=== PATIENT | female | born 1960 | race Two or more races ===

== ENCOUNTER 2024-07-25 11:48 | Inpatient (IN) | payer BC, MEDICAID ==
[~2024-07-25] VITALS: Ht 172.7 cm; Wt 69.1 kg
--- NOTE | 2024-07-25 12:45 | ED.PDOC ---
GI ASSESSMENT HPI Comments 64y F who presents to the ED for chief complaint of nausea and vomiting. Pt states she has been having nausea and vomiting for the past 4 days. Pt states she has hernia on the R and states and states she is to have surgery soon and states her symptoms started when she started to feel his r pelvic pain. Pt states the pain is constant, rating the pain 9/10, with no associated exacerbating or relieving factors. Pt otherwise denies vomiting, diarrhea, fever,cough, chills, dysuria, or hematuria. Pt otherwise denies any other symptoms at this time. 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 Family History Family History: Unknown Social History Smoker: Cigarettes Alcohol: Denies ETOH Use Drugs: Denies Drug Use Lives In: Home Constitutional: denies: chills, diaphoresis, fatigue, fever, malaise, sweats, weakness, others EENTM: denies: blurred vision, double vision, ear bleeding, ear discharge, ear drainage, ear pain, ear ringing, eye pain, eye redness, hearing loss, mouth pain, mouth swelling, nasal discharge, nose bleeding, nose congestion, nose pain, photophobia, tearing, throat pain, throat swelling, voice changes, others Respiratory: denies: cough, hemoptysis, orthopnea, SOB at rest, shortness of breath, SOB with excertion, stridor, wheezing, others Cardiovascular: denies: chest pain, dizzy spells, diaphoresis, Dyspnea on exertion, edema, irregular heart beat, left arm pain, lightheadedness, palpitations, PND, syncope, others Gastrointestinal: reports: nausea, vomiting, others (pelvic pain); denies: abdomen distended, abdominal pain, blood streaked bowels, constipated, diarrhea, dysphagia, difficulty swallowing, hematemesis, melena, poor appetite, poor fluid intake, rectal bleeding, rectal pain Genitourinary: denies: abnormal vagina bleeding, burning, dyspareunia, dysuria, flank pain, frequency, hematuria, incontinence, pain, , vagina discharge, urgency, others Neurological: denies: dizziness, fainting, headache, left sided numbness, left sided weakness, numbness, paresthesia, pre-existing deficit, right sided numbness, right sided weakness, seizure, speech problems, tingling, tremors, wea kness, others Musculoskeletal: denies: back pain, gout, joint pain, joint swelling, muscle pain, muscle stiffness, neck pain, others Integumetry: denies: bruises, change in color, change in hair/nails, dryness, l aceration, lesions, lumps, rash, wounds, others Allergic/Immunocompromised: denies: Difficulty Healing, Frequent Infections, Hives, Itching, others Hematologic/Lymphatic: denies: anemia, blood clots, easy bleeding, easy bruising, swollen glands, others Endocrine: denies: excessive hunger, excessive sweating, excessive thirst, excessive urination, flushing, intolerance to cold, intolerance to heat, unexplained weight gain, unexplained weight loss, others Psychiatric: denies: anxiety, bipolar disorder, depression, hopeless, panic disorder, schizophrenia, sleepless, suicidal, others All Other Systems: Reviewed and Negative Physical Exam General Appearance: Moderate Distress HEENT: Normal ENT Inspection, Pharynx Normal, TMs Normal Neck: Full Range of Motion, Non-Tender, Normal, Normal Inspection Respiratory: Chest Non-Tender, Lungs Clear, No Accessory Muscle Use, No Respiratory Distress, Normal Breath Sounds Cardiovascular: No Edema, No JVD, No Murmur, No Gallop, Normal Peripheral Pulses, Regular Rate/Rhythm Breast Exam: Deferred Gastrointestinal: Diffuse Genitalia: Deferred Pelvic: Deferred Rectal: Deferred Extremities: No calf tenderness, Normal capillary refill, Normal inspection, Normal range of motion, Non-tender, No pedal edema Musculoskeletal : Apperance: Normal Neurologic: Alert, 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 Was a procedure done?: No GI differential Dx Differential Diagnosis: Constipation, Diverticular disease, Esophagitis, Gastritis/PUD, Gastroenteritis, Hernia, UTI, Dehydration, Electrolyte Imbalance, Food Poisoning, Bacterial, Viral, Kidney Stone X-Ray, Labs, Meds, VS Vital Signs Date Time Temp Pulse Resp B/P (MAP) Pulse Ox O2 Delivery O2 Flow Rate FiO2 07/25/24 14:40 98.0 76 16 148/75 (99) 93 98.0 07/25/24 12:04 97.6 87 18 112/65 (81) 96 Lab Test 07/25/24 13:18 Range/Units White Blood Count 5.7 4.4-10.8 10^3/uL Red Blood Count 4.82 4.0-5.20 10^6/uL Hemoglobin 15.2 12.2-16.2 g/dL Hematocrit 43.8 36.0-46.0 % Mean Corpuscular Volume 90.9 80.0-100.0 fL Mean Corpuscular Hemoglobin 31.6 28.0-32.0 pg Mean Corpuscular Hemoglobin Concent 34.7 32.0-36.0 g/dL Red Cell Distribution Width 13.2 11.8-14.3 % Platelet Count 326 140-450 10^3/uL Mean Platelet Volume 7.6 6.9-10.8 fL Neutrophils (%) (Auto) 55.7 37.0-80.0 % Lymphocytes (%) (Auto) 29.1 10.0-50.0 % Monocytes (%) (Auto) 13.1 H 0.0-12.0 % Eosinophils (%) (Auto) 1.4 0.0-7.0 % Basophils (%) (Auto) 0.7 0.0-2.0 % Neutrophils # (Auto) 3.2 1.6-8.6 10 ^3/uL Lymphocytes # (Auto) 1.7 0.4-5.4 10 ^3/uL Monocytes # (Auto) 0.8 0-1.3 10 ^3/uL Eosinophils # (Auto) 0.1 0-0.8 10 ^3/uL Basophils # (Auto) 0 0-0.2 10 ^3/uL Nucleated Red Blood Cells 0.0 % Sodium Level 132 L 136-145 mmol/L Potassium Level 4.1 3.5-5.1 mmol/L Chloride Level 100 98-107 mmol/L Carbon Dioxide Level 22 20-31 mmol/L Anion Gap 10 5-15 Blood Urea Nitrogen 15 9-23 mg/dL Creatinine 0.82 0.550-1.02 mg/dL Glomerular Filtration Rate Calc 81 >90 mL/min BUN/Creatinine Ratio 18.3 10.0-20.0 Serum Glucose 80 74-106 mg/dL Calcium Level 9.4 8.7-10.4 mg/dL Exam: CT CT AB PEL WO CON-NO ORAL OR IV IMPRESSION: 1. Small-bowel obstruction with transition point at the level of a large right inguinal hernia which contains an inflamed loop of small bowel and ascites. 2. Trace abdominopelvic ascites. Patient alert. Complaining of abdominal pain. History of hernia. Unable to walk without any pain. Vitals stable. Answering all questions. Establish intravenous access. Was given fluids. Was given morphine. Was given Zofran. History of hernia waiting for surgery. Dr. Richey is the one that is supposed to do the surgery. Reviewed her history. Explained to the patient. Continue cardiac monitoring. CT scan of the abdomen reviewed does show small bowel obstruction with hernia. Time of 1ST Reevaluation: 13:15 Reevaluation 1ST: Unchanged Patient Education/Counseling: Diagnosis, Treatment Family Education/Counseling: No Family Present Departure 1 Departure Time of Disposition: 13:26 Impression: Primary Impression: Acute abdominal pain Additional Impressions: Small bowel obstruction Hernia Disposition: ADMITTED INPATIENT Admit to: Med Surg Condition: Guarded Critical Care Note Critical Care Time?: No Stability Stability form required: No Heart Score Heart Score: Heart Score Response (Comments) Value History N/A 0 EKG N/A 0 Age N/A 0 Risk Factors N/A 0 Troponin N/A 0 Total 0 I personally scribed for ORAL PRINCE MD (SANDRA) on 07/25/24 at 12:45. Electronically submitted by Daryl Oneill ([email or web address]). I personally scribed for ORAL PRINCE MD (SANDRA) on 07/25/24 at 20:58. Electronically submitted by Daryl Oneill ([employer]). ORAL PRINCE MD Jul 25, 2024 12:45
[2024-07-25 13:49] LABS: Basophils # (auto) 0 10 ^3/uL (0-0.2); Basophils % (auto) 0.7 % (0.0-2.0); Eosinophils # (auto) 0.1 10 ^3/uL (0-0.8); Eosinophils % (auto) 1.4 % (0.0-7.0); Hematocrit 43.8 % (36.0-46.0); Hemoglobin 15.2 g/dL (12.2-16.2); Lymphocytes # (auto) 1.7 10 ^3/uL (0.4-5.4); Lymphocytes % (auto) 29.1 % (10.0-50.0); Mean Corpuscular Hemoglobin 31.6 pg (28.0-32.0); Mean Corpuscular Hgb Conc. 34.7 g/dL (32.0-36.0); Mean Corpuscular Volume 90.9 fL (80.0-100.0); Monocytes # (auto) 0.8 10 ^3/uL (0-1.3); Monocytes % (auto) 13.1 % (0.0-12.0); Neutrophils # (auto) 3.2 10 ^3/uL (1.6-8.6); Neutrophils % (auto) 55.7 % (37.0-80.0); Platelet Count (auto) 326 10^3/uL (140-450); Red Blood Cells 4.82 10^6/uL (4.0-5.20); Red Cell Distribution Width 13.2 % (11.8-14.3); White Blood Cell 5.7 10^3/uL (4.4-10.8)
[2024-07-25 13:57] LABS: Chloride 100 mmol/L (98-107); Potassium 4.1 mmol/L (3.5-5.1)
[2024-07-25 13:58] LABS: Anion Gap 10 (5-15); Carbon Dioxide 22 mmol/L (20-31)
[2024-07-25 13:59] LABS: Calcium 9.4 mg/dL (8.7-10.4)
[2024-07-25 14:03] LABS: BUN/Creatinine Ratio 18.3 (10.0-20.0); Blood Urea Nitrogen 15 mg/dL (9-23); Glucose 80 mg/dL (74-106)
[2024-07-25 14:13] LABS: Sodium 132 mmol/L (136-145)
--- NOTE | 2024-07-25 20:51 | DVH ---
Exam: CT CT AB PEL WO CON-NO ORAL OR IV History: hernia Comparison Study: None Technique: Multidetector spiral CT of the abdomen was performed from lung bases to pubic symphysis. Imaging was performed without IV contrast. Axial, coronal and sagittal multiplanar reformats were ob tained from the axial data set by the technologist. Radiation Dose : 1. Abdomen/Pelvis: CTDIvol 7.3 mGy, DLP 402 mGy*cm. Findings: Evaluation of solid organs is limited due to lack of intravenous contrast use. Lung Bases: No acute or significant lung base finding. Normal heart size. No pleural or pericardial effusion. Liver: The liver is normal in size. No focal lesions. Multiple hepatic cysts are seen pick Gallbladder and Biliary Tree: Unremarkable Spleen: Unremarkable Pancreas: The pancreas is grossly normal in appearance. Adrenal Glands: Unremarkable Kidneys: Kidneys are grossly normal without calculi or hydronephrosis. Bladder: Grossly unremarkable for degree of distention. Bowel: Multiple abnormally dilated loops of small bowel are seen with focal transition point at the l evel of a large right inguinal hernia which contains a loop of inflamed small bowel with adjacent asc ites. Ascites: Trace abdominopelvic ascites. Ascites is also seen in a right inguinal hernia. Lymphadenopathy: No mesenteric, retroperitoneal or periportal lymphadenopathy. Abdominal Wall and Mesentery: Large right inguinal hernia containing noninflamed loop of small bowel and ascites.. Vasculature: The visualized abdominal aorta is normal in size and caliber. Evaluation of abdominal a nd pelvic vessels is limited due to lack of intravenous contrast. Pelvic Organs: Unremarkable Musculoskeletal: No aggressive focal bony lesions, acute fractures or dislocation. IMPRESSION: 1. Small-bowel obstruction with transition point at the level of a large right inguinal hernia which contains an inflamed loop of small bowel and ascites. 2. Trace abdominopelvic ascites. Radiation optimization: All CT scans at this facility use at least one of these dose optimization avinash hniques: automated exposure control mA and/or kV adjustment per patient size (includes targeted exam s where dose is matched to clinical indication) or iterative reconstruction.
[2024-07-25] MEDS: MORPHINE SULFATE 4 MG/ML SYR/VIAL IV ONE (21:00)
[2024-07-25] MEDS: ONDANSETRON HCL 4 MG/2 ML VIAL IV ONE (21:00)
[2024-07-25] MEDS ORDERED: ONDANSETRON HCL 4 MG/2 ML VIAL IV PRN (21:30)
[2024-07-25] MEDS ORDERED: MORPHINE SULFATE INJ 2 MG/ml SYRG IV PRN (21:30)
[2024-07-25] MEDS: PIPERACILLIN-TAZOB 3.375GM 100 ML IV SCH (22:00)
[2024-07-25 22:44] LABS: INR 1.04 (0.9-1.15)
[2024-07-26] VITALS (9 sets, daily range): BP systolic 111–150; BP diastolic 16–64; PULSE 57–79; RESP 15–20; TEMP 97.4–97.9; O2SAT 92–96
--- NOTE | 2024-07-26 00:35 | DVHHP2 ---
Admitting Diagnosis: Small Bowel Obstruction, Inguinal hernia, abdominal pain History of Present Illness History Source: Patient Exam Limitations: No limitations HPI Mrs. Arely Woods is a 64 yo female who presents with a chief complaint of nausea and vomiting. Patient states she has been having nausea and vomiting for the past 4 days. Patient states she has hernia on the right and states and states she is to have surgery soon and states her symptoms started when she started to feel her right pelvic pain. Patient states the pain is constant, rating the pain 9/10, with no associated exacerbating or relieving factors. Patient CT abd/pelvis resulted 1. Small-bowel obstruction with transition point at the level of a large right inguinal hernia which contains an inflamed loop of small bowel and ascites. 2. Trace abdominopelvic ascites. ED Provider Dr. 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 Home Meds No Active Prescriptions or Reported Meds Past Medical History Cardiac: No pertinent Hx Pulmonary: No pertinent Hx Central Nervous System: No pertinent Hx GI: No pertinent Hx Hemotology/Oncology: No pertinent Hx Hepatobiliary: No pertinent Hx Psychiatric: No pertinent Hx Musculoskeletal: No pertinent Hx Rheumotologic: No pertinent Hx Infectious Disease: No peritnent Hx ENT: No pertinent Hx Renal/: No pertinent Hx Endocrine: No pertinent Hx Dermatology: No pertinent Hx Others right inguinal hernia Smoker: No Hx (Negative) Alocohol: None Drugs: None Domestic Violence: Neg Review of Systems Constitutional: No symptom reported Ears, Nose, & Throat: No symptom reported Eyes: No symptom reported Pulmonary/Respiratory: No symptom reported Cardiovascular: No symptom reported Gastrointestinal: Nausea, Abdominal Pain Genitourinary: No symptom reported Musculoskeletal: No symptom reported Skin: No symptom reported Psychiatric: No symptom reported Endocrine: No symptom reported Hemotologic/Lymphatic: No symptom reported H&P Exam Vital Signs Vital Signs Date Time Temp Pulse Resp B/P (MAP) Pulse Ox O2 Delivery O2 Flow Rate FiO2 07/25/24 23:40 98.4 72 18 134/69 (90) 95 98.4 07/25/24 21:18 Room Air General Appeara: Well developed, Well nourished Head Exam: Normal inspection Neck Exam: Normal inspection, Non-tender, Normal alignment Eye Exam: bilateral eye Normal inspection, bilateral eye PERRL, bilateral eye EOMI Ear Exam: bilateral ear Auricle normal, bilateral ear Canal normal Nasal Exam: Normal inspection Mouth: Normal Inspection Pulmonary/Respiratory: Normal inspection, Normal breath sounds, Chest non- tender, Lungs clear Cardiovascular/Chest: Normal inspection, Regular rate, Normal Rhythm Peripheral Pulses: 2+ femoral (L), 2+ dorsalis pedis (R) Abdominal Exam: Soft, Other (hypoactive bowel sounds, tenderness ) Abdominal Pain Onset Location: Generalized abdomen Rectal Exam: Deferred Back Exam: Normal inspection Pelvic 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: Normal hearing, Normal speech, PERRL Neuro/Mental St: Alert, Oriented Appearance: Appropriate appearance, Appropriate insight Eye contact/ Speech: Cooperative, Good eye contact, Normal speech Thoughts/Psych: Normal thought pattern Skin Exam: Normal inspection, Normal color, Warm/dry Labs/Xrays Labs Test 07/25/24 22:11 07/25/24 20:51 07/25/24 13:18 Range/Units Prothrombin Time 11.0 9.3-11.8 sec Prothrombin Time INR 1.04 0.9-1.15 Lactic Acid Level 0.9 0.4-2.0 mmol/L White Blood Count 5.7 4.4-10.8 10^3/uL Red Blood Count 4.82 4.0-5.20 10^6/uL Hemoglobin 15.2 12.2-16.2 g/dL Hematocrit 43.8 36.0-46.0 % Mean Corpuscular Volume 90.9 80.0-100.0 fL Mean Corpuscular Hemoglobin 31.6 28.0-32.0 pg Mean Corpuscular Hemoglobin Concent 34.7 32.0-36.0 g/dL Red Cell Distribution Width 13.2 11.8-14.3 % Platelet Count 326 140-450 10^3/uL Mean Platelet Volume 7.6 6.9-10.8 fL Neutrophils (%) (Auto) 55.7 37.0-80.0 % Lymphocytes (%) (Auto) 29.1 10.0-50.0 % Monocytes (%) (Auto) 13.1 H 0.0-12.0 % Eosinophils (%) (Auto) 1.4 0.0-7.0 % Basophils (%) (Auto) 0.7 0.0-2.0 % Neutrophils # (Auto) 3.2 1.6-8.6 10 ^3/uL Lymphocytes # (Auto) 1.7 0.4-5.4 10 ^3/uL Monocytes # (Auto) 0.8 0-1.3 10 ^3/uL Eosinophils # (Auto) 0.1 0-0.8 10 ^3/uL Basophils # (Auto) 0 0-0.2 10 ^3/uL Nucleated Red Blood Cells 0.0 % Sodium Level 132 L 136-145 mmol/L Potassium Level 4.1 3.5-5.1 mmol/L Chloride Level 100 98-107 mmol/L Carbon Dioxide Level 22 20-31 mmol/L Anion Gap 10 5-15 Blood Urea Nitrogen 15 9-23 mg/dL Creatinine 0.82 0.550-1.02 mg/dL Glomerular Filtration Rate Calc 81 >90 mL/min BUN/Creatinine Ratio 18.3 10.0-20.0 Serum Glucose 80 74-106 mg/dL Calcium Level 9.4 8.7-10.4 mg/dL Assessment/Plan Problem List: (1) Acute abdominal pain (2) Small bowel obstruction (3) Hernia Plan 64 yo female presents to the hospital with abdominal pain, nausea, vomiting. General surgeon Dr. Donnie Rico was consulted by ED Provider Dr. Flores. Patient found to have 1. Small Bowel Obstruction 2. Right Inguinal Hernia Plan Admit Telemetry General surgeon consultation appreciated Cardiology consultation pre op 2D echo NPO, NGT to LIS IV antibiotic Zosyn Lactic acid level, EKG IV fluids Discussed all above with patient who verbalized agreement and understanding of care plan. All questions were answered. Discussed assessment and care plan with supervising MD. Plan discussed with: Patient, Other Code Visit Code Visit Total Time (mins): 45 Additional Comments Additional Comments Additional Comments Patient is seen evaluated chart is reviewed. I agree with the nurse practitioner's evaluation, documentation, assessment and care plan as outlined. URMILA DUBOSE Jul 26, 2024 00:35 SAURABH RODGERS MD Jul 26, 2024 16:51
[2024-07-26] MEDS: D5W/SOD CHL 0.45% 1,000 ML IV ONE (00:47)
[2024-07-26 07:20] LABS: Hematocrit 39.4 % (36.0-46.0); Hemoglobin 13.8 g/dL (12.2-16.2); Mean Corpuscular Hemoglobin 31.4 pg (28.0-32.0); Mean Corpuscular Hgb Conc. 35.1 g/dL (32.0-36.0); Mean Corpuscular Volume 89.6 fL (80.0-100.0); Platelet Count (auto) 296 10^3/uL (140-450); Red Cell Distribution Width 12.7 % (11.8-14.3); White Blood Cell 4.3 10^3/uL (4.4-10.8)
[2024-07-26 07:23] LABS: Chloride 99 mmol/L (98-107); Potassium 3.8 mmol/L (3.5-5.1)
[2024-07-26 07:24] LABS: Anion Gap 8 (5-15); Basophils % (manual) 0 (0.0-2.0); Blast Cells 0; Carbon Dioxide 22 mmol/L (20-31); Metamyelocytes % 0; Myelocytes % 0; Promyelocytes % 0; Reactive Lymphocytes 0
[2024-07-26 07:25] LABS: Calcium 8.8 mg/dL (8.7-10.4)
[2024-07-26 07:30] LABS: Blood Urea Nitrogen 15 mg/dL (9-23)
[2024-07-26 07:45] LABS: Glucose 128 mg/dL (74-106); Sodium 129 mmol/L (136-145)
[2024-07-26 08:19] LABS: Band Neutrophils % (manual) 1; Eosinophils % (manual) 5 (0-7); Lymphocytes % (manual) 24 (10.0-50.0); Monocytes % (manual) 18 (0-12)
[2024-07-26 08:20] LABS: Platelet Estimate Adequate
--- NOTE | 2024-07-26 09:43 | DVHINCON2 ---
Date of service: Jul 26, 2024 Family History: Patient reports no known family medical history. Allergies: Coded Allergies: Nylon (Verified Allergy, Unknown, 07/25/24) Uncoded Allergies: TIDE (Allergy, Unknown, 07/25/24) VIT C (Allergy, Unknown, 07/25/24) Home Meds No Active Prescriptions or Reported Meds Current Medications Current Medications Medications (Trade) Dose Ordered Sig/Cassy Route PRN Reason Start Time Stop Time Status Last Admin Piperacillin Sod/ Tazobactam Sod 100 ml @ 100 mls/hr Q8HR IV 07/25/24 22:00 07/26/24 05:25 Ondansetron HCl (Zofran) 4 mg Q6HPRN PRN IV NAUSEA / VOMITING 07/25/24 21:30 Morphine Sulfate 2 mg Q6HPRN PRN IV PAIN SCALE 1 THRU 6 07/25/24 21:30 Vital Signs Vital Signs Date Time Temp Pulse Resp B/P (MAP) Pulse Ox O2 Delivery O2 Flow Rate FiO2 07/26/24 08:00 60 15 Room Air* 0 21 07/26/24 05:00 97.8 111/64 (80) 95 97.8 Labs/Diagnostic Data Labs Test 07/26/24 06:45 07/26/24 01:47 07/25/24 22:11 07/25/24 13:18 Range/Units White Blood Count 4.3 L 4.4-10.8 10^3/uL Red Blood Count 4.40 4.0-5.20 10^6/uL Hemoglobin 13.8 12.2-16.2 g/dL Hematocrit 39.4 # 36.0-46.0 % Mean Corpuscular Volume 89.6 80.0-100.0 fL Mean Corpuscular Hemoglobin 31.4 28.0-32.0 pg Mean Corpuscular Hemoglobin Concent 35.1 32.0-36.0 g/dL Red Cell Distribution Width 12.7 11.8-14.3 % Platelet Count 296 140-450 10^3/uL Mean Platelet Volume 7.2 6.9-10.8 fL Neutrophils (%) (Auto) 37.0-80.0 % Lymphocytes (%) (Auto) 10.0-50.0 % Monocytes (%) (Auto) 0.0-12.0 % Basophils (%) (Auto) 0.0-2.0 % Neutrophils # (Auto) 1.6-8.6 10 ^3/uL Lymphocytes # (Auto) 0.4-5.4 10 ^3/uL Monocytes # (Auto) 0-1.3 10 ^3/uL Differential Total Cells Counted 100.0 100 Neutrophils % (Manual) 52 37.0-80.0 Band Neutrophils % (Manual) 1 Lymphocytes % (Manual) 24 10.0-50.0 Monocytes % (Manual) 18 H 0-12 Eosinophils % (Manual) 5 0-7 Basophils % (Manual) 0 0.0-2.0 Metamyelocytes % (manual) 0 Myelocytes % (Manual) 0 Promyelocytes % (Manual) 0 Blast Cells % (Manual) 0 Reactive Lymphocytes 0 Platelet Estimate Adequate Sodium Level 129 L 136-145 mmol/L Potassium Level 3.8 3.5-5.1 mmol/L Chloride Level 99 98-107 mmol/L Carbon Dioxide Level 22 20-31 mmol/L Anion Gap 8 5-15 Blood Urea Nitrogen 15 9-23 mg/dL Creatinine 0.79 0.550-1.02 mg/dL Glomerular Filtration Rate Calc 85 >90 mL/min BUN/Creatinine Ratio 19.0 10.0-20.0 Serum Glucose 128 H 74-106 mg/dL Calcium Level 8.8 8.7-10.4 mg/dL Lactic Acid Level 0.8 0.4-2.0 mmol/L Prothrombin Time 11.0 9.3-11.8 sec Prothrombin Time INR 1.04 0.9-1.15 Eosinophils (%) (Auto) 1.4 0.0-7.0 % Eosinophils # (Auto) 0.1 0-0.8 10 ^3/uL Basophils # (Auto) 0 0-0.2 10 ^3/uL Nucleated Red Blood Cells 0.0 % Assessment [id number] [facility] ATTEMPT MANUAL REDUCTION AT BEDSIDE CLOSE OBSERVATION Plan discussed with: Patient NAOMI HUGHES MD Jul 26, 2024 09:43
--- NOTE | 2024-07-26 09:45 | DVHPN2 ---
Progress Note Date Seen: Jul 26, 2024 Medical Necessity Reason Pt with a Central, PICC or Fol: No Objective vital signs Vital Sign Date Time Temp Pulse Resp B/P (MAP) Pulse Ox O2 Delivery O2 Flow Rate FiO2 07/26/24 08:00 60 15 Room Air* 0 21 07/26/24 05:00 97.8 111/64 (80) 95 97.8 Total Intake and Output 07/25/24 07/25/24 07/26/24 15:00 23:00 07:00 Intake Total 0 ml Balance 0 ml medications Current Medications Medications Dose Ordered Sig/Cassy Route Start Time Stop Time Status Last Admin Dose Admin Piperacillin Sod/ Tazobactam Sod 100 ml @ 100 mls/hr Q8HR IV 07/25/24 22:00 07/26/24 05:25 Ondansetron HCl 4 mg Q6HPRN PRN IV 07/25/24 21:30 Morphine Sulfate 2 mg Q6HPRN PRN IV 07/25/24 21:30 laboratory and microbiology Laboratory Tests 07/26/24 06:45 Test 07/26/24 06:45 Range/Units Serum Glucose 128 H 74-106 mg/dL Problem List/Assessment/Plan Problem List/Assessment/Plan AFEBRILE VSS RIH INCARCERATED MANUAL REDUCTION ATTEMPTED AND RIH REDUCED NO COMPLICATION KEEP NPO NG CLOSE OBSERVATION CONSIDER EMERGENT/ELECTIVE RIH SURGERY BASED ON ONGOING EVAL Plan discussed with: Patient NAOMI HUGHES MD Jul 26, 2024 09:45
--- NOTE | 2024-07-26 09:57 | DVHINCON2 ---
DATE OF CONSULTATION: 07/26/2024 HISTORY OF PRESENT ILLNESS: A 64 years old coming in last night with nausea, vomiting, right groin pain and swelling. She has had it for about the past 4 days and she had a hernia on the right side, right groin, for which she was supposed to have surgery, but did not happen and currently I was asked to see her with a possibility of rule out strangulated right inguinal hernia. Currently, she has a swelling in her right groin. She has some nausea. She has an NG tube in place. No hematemesis, melena. No bleeding per rectum. PAST MEDICAL HISTORY: No diabetes or hypertension. PAST SURGICAL HISTORY: She has had left hip surgery. PHYSICAL EXAMINATION: VITAL SIGNS: Afebrile, stable signs. HEENT: With no evidence of pallor, cyanosis, or jaundice. NECK: Supple, nontender with no thyromegaly, lymphadenopathy. CHEST AND LUNGS: Clear. HEART: Within normal limits. ABDOMEN: Soft. She has a right inguinal incarcerated hernia with a possibility of bowel obstruction and abdomen itself is soft, minimally distended. No rebound. EXTREMITIES: Unremarkable. NEUROLOGIC: Intact. CLINICAL IMPRESSION: Incarcerated right inguinal hernia. PLAN: Will be to attempt manual reduction at bedside and continue close observation and if surgery is indicated that will be based upon ongoing evaluation. MD KAREN Frazier/EMILE TID: [id number] RECEIPT: [id number] cc: Tami Mckenzie
[2024-07-26] MEDS ORDERED: MORPHINE SULFATE INJ 2 MG/ml SYRG IV PRN (16:00)
[2024-07-26] MEDS ORDERED: DEXTROSE (50%) 50ML SYRG IV PRN (17:00)
--- NOTE | 2024-07-26 17:02 | DVH ---
Exam: US RIGHT LOWER EXTREMITY ULTRASOU COMPARISON: CT ABDOMEN PELVIS DONE 07/25/2024 Date: 07/26/2024 04:22 PM Clinical History: Right Inguinal Hernia Comparison: None Technique: Targeted sonographic evaluation of the soft tissues of the [facility] was obtained utiliz ing grayscale and color Doppler imaging. Findings: Right inguinal area shows a 9.4 x 4.4 x 6.9 cm anechoic collection with a 3.2 x 2.3 x 3.6 cm echogeni c collection centrally which may be bowel in a fluid-filled inguinal hernia. Clinical findings and se tting should be used to determine incarceration. IMPRESSION: 1. 9.4 x 4.4 x 6.9 cm right inguinal hernia containing fluid and bowel.
[2024-07-26] MEDS: ACCU-CHEK COMFORT CURVE STRIP VI SCH (18:00)
[2024-07-27] VITALS (8 sets, daily range): BP systolic 100–147; BP diastolic 43–69; PULSE 18–98; RESP 15–20; TEMP 97.2–98.6; O2SAT 90–98
[2024-07-27 08:57] LABS: Basophils # (auto) 0 10 ^3/uL (0-0.2); Basophils % (auto) 0.9 % (0.0-2.0); Eosinophils # (auto) 0.3 10 ^3/uL (0-0.8); Eosinophils % (auto) 6.7 % (0.0-7.0); Hematocrit 40.8 % (36.0-46.0); Hemoglobin 14.1 g/dL (12.2-16.2); Lymphocytes # (auto) 1.3 10 ^3/uL (0.4-5.4); Lymphocytes % (auto) 28.9 % (10.0-50.0); Mean Corpuscular Hemoglobin 31.5 pg (28.0-32.0); Mean Corpuscular Hgb Conc. 34.5 g/dL (32.0-36.0); Mean Corpuscular Volume 91.3 fL (80.0-100.0); Monocytes # (auto) 0.6 10 ^3/uL (0-1.3); Monocytes % (auto) 12.9 % (0.0-12.0); Neutrophils # (auto) 2.3 10 ^3/uL (1.6-8.6); Neutrophils % (auto) 50.6 % (37.0-80.0); Nucleated Red Blood Cells % 0.1 %; Platelet Count (auto) 286 10^3/uL (140-450); Red Blood Cells 4.47 10^6/uL (4.0-5.20); Red Cell Distribution Width 13.1 % (11.8-14.3); White Blood Cell 4.6 10^3/uL (4.4-10.8)
[2024-07-27 09:06] LABS: Chloride 103 mmol/L (98-107)
[2024-07-27 09:07] LABS: Anion Gap 7 (5-15); Carbon Dioxide 23 mmol/L (20-31)
[2024-07-27 09:08] LABS: Calcium 8.6 mg/dL (8.7-10.4); Potassium 3.5 mmol/L (3.5-5.1); Sodium 133 mmol/L (136-145)
[2024-07-27 09:12] LABS: Glucose 86 mg/dL (74-106)
[2024-07-27 09:19] LABS: Blood Urea Nitrogen 9 mg/dL (9-23)
[2024-07-27] MEDS: SODIUM CHLORIDE 0.9% 1,000 ML IV ONE (10:35)
--- NOTE | 2024-07-27 12:19 | DVHSR ---
APPROVED REPORT EXAM: Two-dimensional and M-mode echocardiogram with Doppler and color Doppler. Blood Pressure: 111/64 mmHg INDICATION Pre-Op RISK FACTORS Height: 68, Weight: 148 DIMENSIONS LVDd4.8 (3.8-5.7cm)LA (2D)3.3 (1.9-4.0cm)Aortic Root3.3 (2.0-3.7cm) LVDs2.9 (2.5-4.0cm)LA (MM) (1.9-4.0cm)Aortic Cusp Exc1.7 (1.5-2.0cm) EF (%) 70.0 (55-70%)Rt. Atrium4.1 (1.9-4.0cm)Asc. Aorta cm IVSd0.8 (0.7-1.1cm)RV (D) (1.8-2.4cm) PWd0.9 (0.7-1.1cm) Mitral Valve MitralMitral Stenosis E wave0.63m/sMV Mean GR.mmHg A wave0.73m/sMV Peak GR.mmHg E/A ratio0.92D MVAcm2 DECEL [id number] 1/2 [id number] IVRTmsDop MVA2.56cm2 Aortic Valve Aortic ValveAortic Stenosis V11.13m/Yue Mean GR.5mmHg V21.64m/Yue Peak GR.11mmHg LVOT Diameter2.0 (1.8-2.4cm)Doppler AVA2.16cm2 Other Information Technically limited study due to body habitus. Conclusion lvef 65% by visual estimate left atrium enlarged normal rv function no severe valve abnoramlities noted
--- NOTE | 2024-07-27 14:10 | DVHPN2 ---
Progress Note Date Seen: Jul 27, 2024 Medical Necessity Reason Pt with a Central, PICC or Fol: No Objective vital signs Vital Sign Date Time Temp Pulse Resp B/P (MAP) Pulse Ox O2 Delivery O2 Flow Rate FiO2 07/27/24 12:57 98.1 71 15 110/69 (83) 91 98.1 07/27/24 08:00 Room Air* 0 21 Total Intake and Output 07/26/24 07/26/24 07/27/24 15:00 23:00 07:00 Intake Total 0 ml Output Total 850 ml Balance -850 ml 0 ml medications Current Medications Medications Dose Ordered Sig/Cassy Route Start Time Stop Time Status Last Admin Dose Admin Piperacillin Sod/ Tazobactam Sod 100 ml @ 100 mls/hr Q8HR IV 07/25/24 22:00 07/27/24 05:56 100 MLS/HR Ondansetron HCl 4 mg Q6HPRN PRN IV 07/25/24 21:30 Morphine Sulfate 2 mg Q6HPRN PRN IV 07/25/24 21:30 Morphine Sulfate 2 mg Q4HPRN PRN IV 07/26/24 16:00 UNV Diagnostic Test (Pha) 1 strip Q6HR 07/26/24 18:00 07/27/24 12:00 1 STRIP Dextrose 50 ml UD PRN IV 07/26/24 17:00 laboratory and microbiology Laboratory Tests 07/27/24 08:26 Test 07/27/24 08:26 Range/Units Serum Glucose 86 74-106 mg/dL Problem List/Assessment/Plan Problem List/Assessment/Plan AFEBRILE VSS RIH INCARCERATED MANUAL REDUCTION ATTEMPTED AND RIH REDUCED BUT NOW POSSIBLE PARTIAL RECURRENCE KEEP NPO NG CLOSE OBSERVATION CONSIDER EMERGENT OPEN REPAIR RIH POSSIBLE BOWEL RESECTION POSSIBLE COLOSTOMY BENEFITS RISK DISCUSSED PT CONSENTS NURSE AT BEDSIDE Plan discussed with: Patient My Orders My Orders Orders - NAOMI HUGHES MD Procedure Category Date Status Time Right Lower Extremity US 07/26/24 Resulted Ultrasou 16:02 Obtain Consent For: ORDERS 07/27/24 Transmitted 14:03 Obtain Consent For CHRISTIE 07/27/24 Transmitted Anesthesia 14:03 NAOMI HUGHES MD Jul 27, 2024 14:10
[2024-07-27] MEDS ORDERED: DexAMETHasone SOD PHOS 10MG/1ML VIAL INJ ONE (14:58)
[2024-07-27] MEDS ORDERED: HYDROmorphone HCL 2 MG/ML VL/or syr ONE (14:58)
[2024-07-27] MEDS ORDERED: KETOROLAC TROMETH 30 MG/ML 1ML VIAL ONE (14:58)
[2024-07-27] MEDS ORDERED: MIDAZOLAM HCL 2MG/2ML 2ml VIAL (1mg/ml) ONE (14:58)
[2024-07-27] MEDS ORDERED: ePHEDrine SULFATE 50 MG/ML AMP ONE (14:58)
[2024-07-27] MEDS ORDERED: PHENYLEPHRINE HCL 10 MG/ML VL ONE (14:58)
[2024-07-27] MEDS ORDERED: fentaNYL CITRATE 100 MCG/2 ML VL ONE (14:58)
[2024-07-27] MEDS ORDERED: PROPOFOL 10 MG/ML 20 ML IV ONE (14:58)
[2024-07-27] MEDS ORDERED: LIDOCAINE 2% (LOCAL ANESTH.) PF 5ml SDV ONE (14:58)
[2024-07-27] MEDS ORDERED: ROCURONIUM 10MG/ML 10ML VIAL IV ONE (14:58)
[2024-07-27] MEDS ORDERED: GLYCOPYRROLATE 0.2 MG/ML 1ML VIAL ONE (14:58)
[2024-07-27] MEDS ORDERED: ONDANSETRON HCL 4 MG/2 ML VIAL ONE (14:58)
[2024-07-27] MEDS ORDERED: SUGAMMADEX 200mg/2ml Vial (100MG/ML) IV ONE (16:31)
--- NOTE | 2024-07-27 16:43 | DVHOP2 ---
Operative Report [id number] INCARCERATED RIH OPEN REPAIR RIH OMENTECTOMY EBL 25 CC NO DRAINS NO COMPLICATIONS NAOMI HUGHES MD Jul 27, 2024 16:43
[2024-07-27] MEDS ORDERED: HYDROmorphone HCL 2 MG/ML VL/or syr IV PRN (17:00)
--- NOTE | 2024-07-27 17:16 | DVHOP ---
DATE OF SURGERY: 07/27/2024 PREOPERATIVE DIAGNOSIS: Right inguinal incarcerated hernia. There was no small bowel loop involved. Apparently that had gotten reduced yesterday and she had omental tissue stuck, but was not strangulated. POSTOPERATIVE DIAGNOSIS: Right inguinal incarcerated hernia. There was no small bowel loop involved. Apparently that had gotten reduced yesterday and she had omental tissue stuck, but was not strangulated. PROCEDURE: Open repair of this right incarcerated inguinal hernia, no mesh was introduced because of the risk of infection. SURGEON: Darrel Rico MD DRY CELL TESTER: None. ANESTHESIA: General. ESTIMATED BLOOD LOSS: Close to 25 mL. DRAINS: No drains were used. COMPLICATIONS: No complications were encountered. DESCRIPTION OF PROCEDURE: The patient was prepped and draped in the usual sterile fashion in the supine position. The right groin area exposed and an oblique incision was applied above the groin crease going up towards the pubic tubercle, was taken down to the deeper tissues. A large hernial sac was noted and was opened up. Peritoneal fluid was drained out and the omental tissue that was stuck to the sac was identified. There was no strangulation noted, but it was transfixed at the neck of the hernia and using Vicryl suture and the remainder of the omental tissue was removed and submitted for pathology. The sac also was removed and the direct hernial defect was identified and it was sutured together using Prolene suture to the pubic tubercle fascia medially, conjoined tendon above and inguinal ligament below, allowing the round ligament structures to be out of harm's way at all times. There were no injuries to the nerves or vessels in the vicinity at any time. With this repair being done successfully with no complications, the subcutaneous tissues were brought together using Vicryl suture in interrupted fashion, the skin was brought together using 3-0 Monocryl suture in a subcuticular fashion. Surgical glue was applied. Steri-Strips were applied, dressing applied. The patient tolerated the procedure well and was taken back to the recovery room in stable condition. MD KAREN Frazier/MEGHAN/VALORIE TID: [id number] RECEIPT: [id number] cc:
--- NOTE | 2024-07-27 21:31 | DVHPN2 ---
Progress Note - Dictate Date Seen: Jul 27, 2024 Medical Necessity Reason Pt with a Central, PICC or Fol: No Subjective Patient is seen and evaluated along with the general surgeon Dr. Rico and nurse at bedside. vital signs Vital Sign Date Time Temp Pulse Resp B/P (MAP) Pulse Ox O2 Delivery O2 Flow Rate FiO2 07/27/24 17:28 82 19 107/57 (74) 98 07/27/24 17:05 Nasal Cannula 3.0 07/27/24 16:48 98.0 98.0 07/27/24 08:00 21 Total Intake and Output 07/26/24 07/26/24 07/27/24 15:00 23:00 07:00 Intake Total 0 ml Output Total 850 ml Balance -850 ml 0 ml medications Current Medications Medications Dose Ordered Sig/Cassy Route Start Time Stop Time Status Last Admin Dose Admin Piperacillin Sod/ Tazobactam Sod 100 ml @ 100 mls/hr Q8HR IV 07/25/24 22:00 07/27/24 05:56 100 MLS/HR Ondansetron HCl 4 mg Q6HPRN PRN IV 07/25/24 21:30 Morphine Sulfate 2 mg Q6HPRN PRN IV 07/25/24 21:30 Morphine Sulfate 2 mg Q4HPRN PRN IV 07/26/24 16:00 UNV Diagnostic Test (Pha) 1 strip Q6HR 07/26/24 18:00 07/27/24 12:00 1 STRIP Dextrose 50 ml UD PRN IV 07/26/24 17:00 objective Alert awake oriented x3. Reluctant to take any pain medications. Right inguinal area appears mildly swollen with pain to palpation. Heart regular rate and rhythm S1 plus S2. Lungs fair air movement without rales wheezes. Abdomen soft nontender positive bowel sounds. Extremities no edema. laboratory and microbiology Laboratory Tests 07/27/24 08:26 Test 07/27/24 08:26 Range/Units Serum Glucose 86 74-106 mg/dL Assessment/Plan Given patient's hernia did not improve and continued to have pain Dr. Rico surgeon feels she needs surgery. Therefore she will be taken to the OR sometime later this evening. Discussed with the patient regarding care plan and she was agreeable to surgery. Problems(with codes): (1) Hernia (2) Small bowel obstruction (3) Acute abdominal pain Plan discussed with: Other GANAPAVARAPU,SAURABH MD Jul 27, 2024 21:31
[2024-07-28 05:00] VITALS: BP 118/73; PULSE 56; RESP 17; TEMP 97.7; O2SAT 96
[2024-07-28 06:31] LABS: Basophils # (auto) 0 10 ^3/uL (0-0.2); Basophils % (auto) 0.2 % (0.0-2.0); Eosinophils # (auto) 0 10 ^3/uL (0-0.8); Eosinophils % (auto) 0.3 % (0.0-7.0); Hematocrit 35.3 % (36.0-46.0); Hemoglobin 12.3 g/dL (12.2-16.2); Lymphocytes % (auto) 18.3 % (10.0-50.0); Mean Corpuscular Hemoglobin 31.7 pg (28.0-32.0); Mean Corpuscular Hgb Conc. 34.8 g/dL (32.0-36.0); Mean Corpuscular Volume 91.1 fL (80.0-100.0); Monocytes # (auto) 0.6 10 ^3/uL (0-1.3); Neutrophils # (auto) 3.9 10 ^3/uL (1.6-8.6); Neutrophils % (auto) 70.2 % (37.0-80.0); Nucleated Red Blood Cells % 0.2 %; Platelet Count (auto) 249 10^3/uL (140-450); Red Blood Cells 3.88 10^6/uL (4.0-5.20); Red Cell Distribution Width 13.3 % (11.8-14.3); White Blood Cell 5.5 10^3/uL (4.4-10.8)
[2024-07-28 06:50] LABS: Chloride 104 mmol/L (98-107); Potassium 4.9 mmol/L (3.5-5.1); Sodium 137 mmol/L (136-145)
[2024-07-28 06:51] LABS: Anion Gap 8 (5-15); Carbon Dioxide 25 mmol/L (20-31)
[2024-07-28 06:56] LABS: BUN/Creatinine Ratio 17.1 (10.0-20.0); Blood Urea Nitrogen 12 mg/dL (9-23); Glucose 88 mg/dL (74-106)
[2024-07-28 06:59] LABS: Calcium 8.5 mg/dL (8.7-10.4)
[2024-07-28] MEDS: ceFAZolin 2 GM/D5W100ml 100 ML IV ONE (07:56)
[2024-07-28] MEDS: LIDOCAINE 1% HCL (LOCAL ANESTH.) INJ 20ML MDV ONE (07:56)
[2024-07-28 08:00] VITALS: PULSE 63; PULSE 66; RESP 17; O2SAT 96
[2024-07-28 09:00] VITALS: BP 98/53; PULSE 66; RESP 17; TEMP 98.2; O2SAT 92
--- NOTE | 2024-07-28 14:47 | DVHPN2 ---
Progress Note Date Seen: Jul 28, 2024 Medical Necessity Reason Pt with a Central, PICC or Fol: No Objective vital signs Vital Sign Date Time Temp Pulse Resp B/P (MAP) Pulse Ox O2 Delivery O2 Flow Rate FiO2 07/28/24 08:00 66 17 96 Room Air* 0 21 07/28/24 05:00 97.7 118/73 (88) 97.7 Total Intake and Output 07/27/24 07/27/24 07/28/24 15:00 23:00 07:00 Intake Total 100 ml 245 ml 600 ml Balance 100 ml 245 ml 600 ml medications Current Medications Medications Dose Ordered Sig/Cassy Route Start Time Stop Time Status Last Admin Dose Admin Piperacillin Sod/ Tazobactam Sod 100 ml @ 100 mls/hr Q8HR IV 07/25/24 22:00 07/28/24 14:13 100 MLS/HR Ondansetron HCl 4 mg Q6HPRN PRN IV 07/25/24 21:30 Morphine Sulfate 2 mg Q6HPRN PRN IV 07/25/24 21:30 Morphine Sulfate 2 mg Q4HPRN PRN IV 07/26/24 16:00 UNV Diagnostic Test (Pha) 1 strip Q6HR 07/26/24 18:00 07/28/24 05:27 1 STRIP Dextrose 50 ml UD PRN IV 07/26/24 17:00 laboratory and microbiology Laboratory Tests 07/28/24 05:37 Test 07/28/24 05:37 Range/Units Serum Glucose 88 74-106 mg/dL Problem List/Assessment/Plan Problem List/Assessment/Plan AFEBRILE VSS S/P RIH REPAIR KEVIN DIET NO RECURRENCE NO COMPLICATION DC IVF AND ABX CLEARED FOR DISCHARGE INSTRUCTIONS RE DIET ACTIVITY F/UP GIVEN Plan discussed with: Patient My Orders My Orders Orders - NAOMI HUGHES MD Procedure Category Date Status Time Clear Liq Diet DIET 07/27/24 Transmitted Dinner NAOMI HUGHES MD Jul 28, 2024 14:47
[2024-07-28 17:00] VITALS: BP 97/47; PULSE 73; RESP 17; TEMP 98.9; O2SAT 91
[2024-07-28] MEDS ORDERED: ACETAMINOPHEN 325 MG TAB PO PRN (17:00)
--- NOTE | 2024-07-28 17:56 | DVHPN2 ---
Progress Note - Dictate Date Seen: Jul 28, 2024 Medical Necessity Reason Pt with a Central, PICC or Fol: No Subjective Status post right inguinal hernia surgery with a small bowel obstruction release. Patient having some pain but reluctant to take any pain meds. Tolerating diet. vital signs Vital Sign Date Time Temp Pulse Resp B/P (MAP) Pulse Ox O2 Delivery O2 Flow Rate FiO2 07/28/24 08:00 63 07/28/24 08:00 17 96 Room Air* 0 21 07/28/24 05:00 97.7 118/73 (88) 97.7 Total Intake and Output 07/27/24 07/27/24 07/28/24 15:00 23:00 07:00 Intake Total 100 ml 245 ml 600 ml Balance 100 ml 245 ml 600 ml medications Current Medications Medications Dose Ordered Sig/Cassy Route Start Time Stop Time Status Last Admin Dose Admin Morphine Sulfate 2 mg Q4HPRN PRN IV 07/26/24 16:00 UNV Diagnostic Test (Pha) 1 strip Q6HR 07/26/24 18:00 07/28/24 05:27 1 STRIP Dextrose 50 ml UD PRN IV 07/26/24 17:00 Acetaminophen 325 mg Q4HP PRN PO 07/28/24 17:00 objective Alert awake oriented x3. Reluctant to take any pain medications. Abdomen soft nontender positive bowel sounds. Heart regular rate and rhythm S1 and S2. Lungs fair air movement without rales wheezes. Extremities no edema. laboratory and microbiology Laboratory Tests 07/28/24 05:37 Test 07/28/24 05:37 Range/Units Serum Glucose 88 74-106 mg/dL Assessment/Plan Status post right inguinal/femoral hernia repair with small bowel obstruction release. She was doing well. We will transition IV medications to oral medications. Tylenol as needed for pain per her request. Continued to ambulate and continue oral diet as she is on. If she remains stable consider discharge home tomorrow. Discussed with the patient and nurse regarding care plan at bedside. Problems(with codes): (1) Hernia (2) Small bowel obstruction (3) Acute abdominal pain Plan discussed with: SAURABH Burk MD Jul 28, 2024 17:56
[2024-07-28 20:00] VITALS: PULSE 88
[2024-07-28 21:00] VITALS: BP 114/78; PULSE 68; RESP 18; TEMP 98.2; O2SAT 93
[2024-07-28] MEDS: AMOXICILLIN/CLAVUL 875 MG TAB PO SCH (21:10)
[2024-07-28] MEDS: metroNIDAZOLE 500 MG TAB PO SCH (21:11)
[2024-07-29 01:00] VITALS: BP 106/53; PULSE 68; RESP 17; O2SAT 90
[2024-07-29 05:00] VITALS: BP 103/53; PULSE 69; RESP 17; TEMP 97.9; O2SAT 92
[2024-07-29 08:30] VITALS: PULSE 63
[2024-07-29 13:00] VITALS: BP 99/49; PULSE 60; RESP 17; TEMP 97.8; O2SAT 100
[2024-07-29] MEDS ORDERED: ACET-1304 PO (15:49)
[2024-07-29] MEDS ORDERED: AMOX500T86 PO (15:49)
--- NOTE | 2024-07-29 15:50 | DVHDS2 ---
Discharge Summary Date of Admission Jul 25, 2024 at 21:24 Date of Discharge: Jul 29, 2024 Labs/Diagnostic Data: Laboratory Results Test 07/28/24 23:23 07/28/24 18:36 07/28/24 05:37 07/26/24 06:45 POC Glucose 102 mg/dl (70-106) White Blood Count 5.5 10^3/uL (4.4-10.8) Red Blood Count 3.88 10^6/uL (4.0-5.20) Hemoglobin 12.3 g/dL (12.2-16.2) Hematocrit 35.3 % (36.0-46.0) Mean Corpuscular Volume 91.1 fL (80.0-100.0) Mean Corpuscular Hemoglobin 31.7 pg (28.0-32.0) Mean Corpuscular Hemoglobin Concent 34.8 g/dL (32.0-36.0) Red Cell Distribution Width 13.3 % (11.8-14.3) Platelet Count 249 10^3/uL (140-450) Mean Platelet Volume 7.0 fL (6.9-10.8) Neutrophils (%) (Auto) 70.2 % (37.0-80.0) Lymphocytes (%) (Auto) 18.3 % (10.0-50.0) Monocytes (%) (Auto) 11.0 % (0.0-12.0) Eosinophils (%) (Auto) 0.3 % (0.0-7.0) Basophils (%) (Auto) 0.2 % (0.0-2.0) Neutrophils # (Auto) 3.9 10 ^3/uL (1.6-8.6) Lymphocytes # (Auto) 1.0 10 ^3/uL (0.4-5.4) Monocytes # (Auto) 0.6 10 ^3/uL (0-1.3) Eosinophils # (Auto) 0 10 ^3/uL (0-0.8) Basophils # (Auto) 0 10 ^3/uL (0-0.2) Nucleated Red Blood Cells 0.2 % Sodium Level 137 mmol/L (136-145) Potassium Level 4.9 mmol/L (3.5-5.1) Chloride Level 104 mmol/L (98-107) Carbon Dioxide Level 25 mmol/L (20-31) Anion Gap 8 (5-15) Blood Urea Nitrogen 12 mg/dL (9-23) Creatinine 0.70 mg/dL (0.550-1.02) Glomerular Filtration Rate Calc 98 mL/min (>90) BUN/Creatinine Ratio 17.1 (10.0-20.0) Serum Glucose 88 mg/dL (74-106) Calcium Level 8.5 mg/dL (8.7-10.4) Differential Total Cells Counted 100.0 (100) Neutrophils % (Manual) 52 (37.0-80.0) Band Neutrophils % (Manual) 1 Lymphocytes % (Manual) 24 (10.0-50.0) Monocytes % (Manual) 18 (0-12) Eosinophils % (Manual) 5 (0-7) Basophils % (Manual) 0 (0.0-2.0) Metamyelocytes % (manual) 0 Myelocytes % (Manual) 0 Promyelocytes % (Manual) 0 Blast Cells % (Manual) 0 Reactive Lymphocytes 0 Platelet Estimate Adequate Test 07/26/24 01:47 07/25/24 22:11 Lactic Acid Level 0.8 mmol/L (0.4-2.0) Prothrombin Time 11.0 sec (9.3-11.8) Prothrombin Time INR 1.04 (0.9-1.15) Other Laboratory Tests 07/28/24 05:37 Final Diagnosis/Problems List Right femoral hernia with a small-bowel obstruction status post hernia repair surgery with release of obstruction Discharge Disposition: Home Discharge Instruct/Medications Diet: Consistent carbohydrate, Cardiac 2g Na,low cholest Activity: No Restrictions, As Tolerated Follow Up/Referral: Surgeon Dr. Rico next week follow up hernia repair surgery in his office Medications: As prescribed Discharge Statement: "Patient was advised to return to the ER or call 911 if any headaches, dizziness, shortness of breath, chest pain, abdominal pain, bleeding, fevers, or worsening of medical condition. Patient was counseled about treatment plan, medications, possible side effects, patientverbalized understanding. All questions were answered to the best of my ability. This discharge took greater then 30 minutes in planning, reviewing documentation, counseling the patient, and discussing with other team members." ASSESSMENT ASSESSMENT Assessment Right femoral hernia with a small-bowel obstruction status post hernia repair surgery with release of obstruction SAURABH RODGERS MD Jul 29, 2024 15:50
[2024-07-29 16:34] VITALS: TEMP 36.6
[2024-07-29 17:00] VITALS: BP 100/50; PULSE 73; RESP 17; TEMP 98.4; O2SAT 93
[2024-07-29 19:06] LABS: Hepatitis B Surface Antibody Negative (Negative); Hepatitis B Surface Antigen Negative (Negative); Hepatitis C Antibody Negative (Negative)
== END 2024-07-29 20:06 | disposition home or self-care (01) | DRG 352 ==
LOC: ER 11:48 → TELE 21:24 → TELE-EAST 23:53
PROVIDERS: ADMIT Nurse Practitioner Family; ATTEND Nurse Practitioner Family
PROC: 0YQ50ZZ Repair Right Inguinal Region, Open Approach (ICD-10-PCS; principal; 2024-07-27 15:29)
DX: K40.30 Unilateral inguinal hernia, with obstruction, without gangrene, not specified as recurrent (principal); K41.90 Unilateral femoral hernia, without obstruction or gangrene, not specified as recurrent; F17.210 Nicotine dependence, cigarettes, uncomplicated; Z79.899 Other long term (current) drug therapy
CPT/HCPCS: 36415; 74176; 76881; 80048; 82962; 83605; 85007; 85025; 85027; 85610; 86703; 86706; 86803; 86850; 86900; 86901; 87340; 93306; 97162; G0378; J1100; J1885; J2003; J2250; J2405; J2543; J2704; J7042